=== PATIENT | male | born 1990 | race Caucasian/White ===

== ENCOUNTER 2017-01-02 09:15 | Emergency (ER) | payer OTHER ==
--- NOTE | 2017-01-02 10:09 | ED ---
Bite Injury/Animal - HPI Summary HPI Summary: Pt here for possible bat exposure. 8 days ago, stayed at parents house in [place]. Pt arrived on a Wednesday and that night the father was checking the downstairs before everyone went to bed upstairs and found a bat. The bat was contained in a room overnight and an animal removal specialist came to the house and removed it Wednesday (the following day). The bat was not kept or tested for rabies. The patient has no known injuries to his skin and was coherent the entire time he was at his parents, leading up to the time of the discovery of the bat. He denies ever seeing the bat or feeling a bite sensation anywhere on his body. He also has no gaping wounds. Imms are UTD but has never had rabies vaccine before. Parents spoke w/ their family doctor who advised PEP for pt and so pt is here today for tx. He is visiting his GF who attends school here. He lives in [facility] [facility] and works, not a student. He does not plan to stay here for remaining vaccine tx's should he receive them nor go back to [place] for vaccines. He plans to go back to [facility] to return to work and life. - History of Current Complaint Chief Complaint: EDGeneral Stated Complaint: POSSIBLE BAT EXPOSIER Time Seen by Provider: 01/02/17 09:38 Hx Obtained From: Patient, Family/Small Animal Veterinarian - pt's GF Pain Intensity: 0 - Allergies/Home Medications Allergies/Adverse Reactions: Allergies Allergy/AdvReac Type Severity Reaction Status Date / Time No Known Allergies Allergy Verified 01/02/17 09:35 PMH/Surg Hx/FS Hx/Imm Hx Previously Healthy: Yes Endocrine/Hematology History: Denies: Hx Anticoagulant Therapy, Hx Blood Disorders, Autoimmune Disease - Immunization History Immunizations Up to Date: Yes Infectious Disease History: No Infectious Disease History: Denies: Traveled Outside the [place] in Last 30 Days - Family History Known Family History: Positive: None - Social History Occupation: Employed Full-time Lives: Alone Alcohol Use: Occasionally Hx Substance Use: No Substance Use Type: Reports: None Hx Tobacco Use: No Smoking Status (MU): Never Smoked Tobacco Review of Systems Constitutional: Negative Negative: Fever, Chills, Fatigue Eyes: Negative ENT: Negative Cardiovascular: Negative Respiratory: Negative Gastrointestinal: Negative Positive: no symptoms reported Musculoskeletal: Negative Skin: Negative Neurological: Negative Psychological: Normal All Other Systems Reviewed And Are Negative: Yes Physical Exam Triage Information Reviewed: Yes Vital Signs On Initial Exam: Initial Vitals Temp Pulse Resp BP Pulse Ox 97.8 F 92 20 145/84 99 01/02/17 09:19 01/02/17 09:19 01/02/17 09:19 01/02/17 09:19 01/02/17 09:19 Vital Signs Reviewed: Yes Appearance: Positive: Well-Appearing, No Pain Distress, Well-Nourished Skin: Positive: Warm, Dry Head/Face: Positive: Normal Head/Face Inspection Eyes: Positive: EOMI ENT: Positive: Hearing grossly normal Neck: Positive: Supple Respiratory/Lung Sounds: Positive: Breath Sounds Present Cardiovascular: Positive: Normal Musculoskeletal: Positive: Normal, Strength/ROM Intact Neurological: Positive: Normal, Sensory/Motor Intact, Alert, Oriented to Person Place, Time, CN Intact II-III Psychiatric: Positive: Normal Diagnostics - Vital Signs Vital Signs Temp Pulse Resp BP Pulse Ox 01/02/17 09:33 97.8 F 92 16 145/84 99 01/02/17 09:19 97.8 F 92 20 145/84 99 - Laboratory Lab Statement: Any lab studies that have been ordered have been reviewed, and results considered in the medical decision making process. Bite Injury Course/Dx - Course Course Of Treatment: Pt presents w/ concern for rabies exposure. However given the path of his encounter (or lack there of), he does not meet criteria for PEP. Explained to pt and he will contact parent's PCP for further explanation of why he should receive this. If he somehow meets criteria, he may return to ED for vaccine however also explained since this is out of county of potential exposure as is [facility], he may need to pay out of pocket for remaining vaccines. Pt agrees w/ plan. - Diagnoses Provider Diagnosis: Exposure to bat without known bite Discharge - Discharge Plan Condition: Stable Disposition: HOME Additional Instructions: It was deemed unnecessary for you to received a PEP treatment for rabies today. Please feel free to follow-up with PCP for further guidance as necessary.
[2017-01-02 12:17] VITALS: BP 155/87
== END 2017-01-02 12:16 | disposition home or self-care (01) ==
LOC: ED 09:15
DX: Z20.3 Contact with and (suspected) exposure to rabies (principal)
CPT/HCPCS: 99282